=== PATIENT | male | born 1980 | race Caucasian/White ===

== ENCOUNTER 2018-10-30 14:04 | Emergency (ER) | payer MEDICAID ==
[2018-10-30] MEDS ORDERED: IBUPROFEN 600 MG TAB PO ONE (15:37)
--- NOTE | 2018-10-30 15:40 | EDPHY ---
H & P Stated Complaint: inj lumbar area lifting weights last wednesday/rx steroids/ flexeril Time Seen by Provider: 10/30/18 15:09 HPI/ROS: CHIEF COMPLAINT: Low back pain HISTORY OF PRESENT ILLNESS: 38-year-old male presents with low back pain. Onset low back pain while lifting weights from a standing position 1 week ago. Minimal pain initially, but the following day the pain was moderate and increased with back movement. The pain is moderate and improves with rest. Taking ibuprofen 200-400 mg 1-2 times daily as needed for pain. Took Flexeril last night with minimal relief. Also received a prescription for steroids, but has not started them yet. No leg weakness or numbness. REVIEW OF SYSTEMS: complete 10 point ROS reviewed and is negative except for the noted elements in the HPI - Personal History Current Tetanus Diphtheria and Acellular Pertussis (TDAP): Yes - Medical/Surgical History Hx Asthma: No Hx Chronic Respiratory Disease: No Hx Diabetes: No Hx Cardiac Disease: No Hx Renal Disease: No Hx Cirrhosis: No Hx Alcoholism: No Hx HIV/AIDS: No Hx Splenectomy or Spleen Trauma: No Other PMH: denies - Social History Smoking Status: Never smoked - Physical Exam Exam: General Appearance: Alert, pleasant Eyes: Pupils equal and round, no conjunctival pallor ENT, Mouth: Mucous membranes moist Neck: Normal inspection Respiratory: Lungs are clear to auscultation Cardiovascular: Regular rate and rhythm Gastrointestinal: Abdomen is soft and nontender Back: Normal inspection, no midline or paraspinous tenderness Neurological: A&O, motor 5/5, including dorsiflexion of the foot and 1st toe, patellar DTRs 1+ bilaterally, slow and steady gait gait Skin: Warm and dry Extremities: Normal inspection Psychiatric: Mood and affect normal Constitutional: Initial Vital Signs Temperature (C) 36.4 C 10/30/18 14:22 Heart Rate 67 10/30/18 14:22 Respiratory Rate 17 10/30/18 14:22 Blood Pressure 124/70 H 10/30/18 14:22 O2 Sat (%) 98 10/30/18 14:22 O2 Delivery Mode Room Air Allergies/Adverse Reactions: Sulfa (Sulfonamide Antibiotics) Allergy (Verified 10/30/18 14:22) Home Medications: Medication Instructions Recorded Cyclobenzaprine 10/30/18 Hydrocodone/APAP 5/325 [[place] 1 - 2 tab PO Q4H PRN #15 tab 10/30/18 5/325 (*)] Methylprednisolone 10/30/18 Medical Decision Making - Diagnostics Imaging Results: Lumbar spine Xray: NAD Imaging: I viewed and interpreted images myself ED Course/Re-evaluation: This patient presents with low back strain. Ibuprofen 600 mg orally given. X- rays done at patient request. Neurologic exam normal, no indication for MRI today. LBP instructions given. - Data Points Medications Given: Discontinued Medications Ibuprofen (Motrin) 600 mg PO EDNOW ONE Stop: 10/30/18 15:38 Last Admin: 10/30/18 15:47 Dose: 600 mg Departure - Departure Disposition: Home, Routine, Self-Care Clinical Impression: Low back strain Qualifiers: Encounter type: initial encounter Qualified Code(s): S39.012A - Strain of muscle, fascia and tendon of lower back, initial encounter Condition: Good Instructions: Low Back Strain (ED), Core Strengthening Exercises (ED) Additional Instructions: Ibuprofen 600-800 mg 3 times daily while the pain persists. Referrals: Giovanna Fox MD [[facility] [place] Primary Care Provider] - As per Instructions Prescriptions: Hydrocodone/APAP 5/325 [[place] 5/325 (*)] 1 - 2 tab PO Q4H PRN #15 tab PRN Reason: Pain, Moderate
[2018-10-30 16:37] VITALS: BP 109/81
== END 2018-10-30 16:35 | disposition home or self-care (01) ==
DX: S39.012A Strain of muscle, fascia and tendon of lower back, initial encounter (principal); X50.0XXA Overexertion from strenuous movement or load, initial encounter; Y93.B3 Activity, free weights; Z88.2 Allergy status to sulfonamides